=== PATIENT | female | born 1990 | race Caucasian/White ===

== ENCOUNTER 2024-09-04 12:27 | Emergency (ER) | payer OTHER, SELFPAY ==
[2024-09-04 12:33] VITALS: BP 133/76
[2024-09-04 12:51] LABS: % Basophils 0.3 % (0-2); % Immature Granulocytes 0.3 % (0-0.5); % Lymphocytes 14.6 % (20.5-51.1); % Monocytes 8.6 % (1.7-9.3); % Neutrophils 74.2 % (42.2-75.2); Absolute Eosinophils 0.2 10^3/uL (0-0.7); Absolute Lymphocytes 1.1 10^3/uL (1.2-3.4); Absolute Monocytes 0.7 10^3/uL (0.1-0.6); Absolute Neutrophils 5.7 10^3/uL (1.4-6.5); Hematocrit 37.8 % (37.0-47.0); Hemoglobin 12.5 g/dL (12.0-16.0); Mean Corp Hgb Conc. 33.1 g/dL (33.0-37.0); Mean Corpuscular Volume 90.9 fL (81.0-99.0); Nucleated Red Blood Cells % 0 %; Platelet Count 219 10^3/uL (130-400); Red Blood Cell Count 4.16 10^6/uL (4.20-5.40); Red Cell Dist. Width 13.3 % (11.5-14.5); White Blood Cell Count 7.7 10^3/uL (4.8-10.8)
[2024-09-04 13:06] LABS: ALT (SGPT) 13 U/L (0-35); AST (SGOT) 21 U/L (14-36); Albumin 3.9 g/dl (3.5-5.0); Alkaline Phosphatase 48 U/L (38-126); Blood Urea Nitrogen 7 mg/dl (7-17); Calcium 9.4 mg/dl (8.4-10.2); Carbon Dioxide 26 mmol/L (22-30); Chloride 104 mmol/L (98-107); Glucose 94 mg/dl (70-99); Potassium 3.7 mmol/L (3.5-5.1); Sodium 136 mmol/L (135-145); Total Bilirubin 0.3 mg/dl (0.2-1.3); Total Protein 6.7 g/dl (6.3-8.2); eGFR > 60.00
[2024-09-04 14:30] VITALS: BP 119/76
--- NOTE | 2024-09-04 14:35 | CON.NEURO ---
Consultation
Order
Date of Consultation: 09/04/24
Requesting Provider: Cain Perez MD
Reason for Consult: Probable new onset seizure
Neurology Consultation Note.
HPI: This is a 34-year-old 14-week woman who presented to [facility] on 09/04/2024 with a spell. According to the patient she developed an episode that occurred during a flight the previous night while the plane was
descending when she experienced a sharp pain in the right supraorbital region, described as a 'zing.' The patient felt overheated and attempted to alert her before losing consciousness. The patient's reports that prior to the
episode, she appeared pale and sweaty, complaining of pressure above her right eye. Ms. Horner reportedly slumped over and and was shaking for about 30 seconds with her eyes closed and head down. Upon regaining consciousness, the patient was
initially confused and disoriented.
No reports of fever, recent head trauma, history of encephalitis, seizures.
The patient reports a family history of seizures, with her maternal aunt experiencing seizures during puberty and her paternal grandmother having similar episodes that resolved by age 14.
ER VS: 133/76, 97, afebrile
EKG: Pending
Labs: Normal glucose WBCs, sodium, calcium
PMH: none
PSH: bilateral augmentation mammoplasty, rhinoplasty, , Staples teeth extraction
SH: , [id number] mom, previously worked in [employer]
FH: Maternal aunt�seizure
All:NKDA
ROS: Constitutional: Negative. Negative for chills, fever and unexpected weight change.
HENT: Negative for ear pain, hearing loss, tinnitus and trouble swallowing.
Eyes: Negative. Negative for photophobia, pain and visual disturbance.
Respiratory: Negative for cough, choking and shortness of breath.
Cardiovascular: Negative for chest pain, palpitations and leg swelling.
Gastrointestinal: Negative for abdominal pain and vomiting.
Endocrine: Negative. Negative for cold intolerance.
Genitourinary: Negative for dysuria, flank pain and urgency.
Musculoskeletal: Negative for back pain, gait problem, neck pain and neck stiffness.
Skin: Negative for rash.
Allergic/Immunologic: Negative. Negative for immunocompromised state.
Neurological: Positive for spells, transient headache
Psychiatric/Behavioral: Negative for behavioral problems, confusion and hallucinations.
General: Well developed. In no acute distress.
Cardio: Regular rate and rhythm without murmur. Extremities are without cyanosis or edema.
Neuro:
Mental Status: Alert, oriented to person, place, and date. Normal attention and recall. Good fund of knowledge. Follows complex requests across the midline. Comprehension, naming, and repetition intact.
Cranial Nerves: Pupils are equally round and reactive to light. EOMs full. Visual johnson full to confrontation. No ptosis. No nystagmus. V1-V3 intact to light touch and pinprick bilaterally, symmetric. Face symmetric. Normal hearing AU. The
palate elevated well. SCMs and traps 5/5. Tongue midline. No dysarthria.
Motor: Normal bulk and tone. No pronator or arm drift. Strength 5/5 throughout. No clonus.
Reflexes: 2+ throughout the upper extremities and knees. Plantar responses flexor bilaterally.
Sensory: Normal pinprick, vibration and JPS.
Coordination: No dysmetria or tremor.
Gait: deferred
Assessment and Plan:
I. Airplane headache
II. Syncope versus seizure
III. Family history of epilepsy
-Continue telemetry monitoring
-Seizure precautions
-Please obtain magnesium level, TFTs, urinalysis
-EKG
-Follow-up brain MRI
-Routine EEG
I personally reviewed all radiology and labs along with past medical records pertinent to current medical problems. Total time spent in patient care is 56 minutes.
Thank you for allowing us to participate in the care of this patient. We will continue to follow. Please do not hesitate to contact us with any questions or concerns.
Subjective/Objective
Subjective Data
Date of Service: September 04, 2024
Objective Data
Vital Signs
Temp Pulse Resp BP Pulse Ox
36.6 C 97 16 133/76 100
09/04/24 12:33 09/04/24 12:33 09/04/24 12:33 09/04/24 12:33 09/04/24 12:33
Lab Results
09/04/24 12:40
09/04/24 12:40
Sodium 136 mmol/L (135-145) 09/04/24 12:40
Potassium 3.7 mmol/L (3.5-5.1) 09/04/24 12:40
BUN 7 mg/dl (7-17) 09/04/24 12:40
Glucose 94 mg/dl (70-99) 09/04/24 12:40
Calcium 9.4 mg/dl (8.4-10.2) 09/04/24 12:40
Patient Allergies
No Known Allergies Allergy (Verified 09/04/24 12:37)
Vital Signs and Labs
-
Vital Signs and Labs:
Vital Signs
Temp Pulse Resp BP Pulse Ox
36.6 C 86 18 123/75 100
09/04/24 12:33 09/04/24 15:15 09/04/24 15:15 09/04/24 15:15 09/04/24 15:15
Lab Results
09/04/24 12:40
09/04/24 12:40
Sodium 136 mmol/L (135-145) 09/04/24 12:40
Potassium 3.7 mmol/L (3.5-5.1) 09/04/24 12:40
BUN 7 mg/dl (7-17) 09/04/24 12:40
Glucose 94 mg/dl (70-99) 09/04/24 12:40
Calcium 9.4 mg/dl (8.4-10.2) 09/04/24 12:40
Ur Buprenorphine Negative (Negative) 09/04/24 16:01
--- NOTE | 2024-09-04 14:51 | ED.GENMED ---
History of Present Illness
General
Chief Complaint: Seizure
Source: patient
Exam Limitations: none
Time Seen by Provider: 09/04/24 14:06
Nursing documentation reviewed up to this point in time: agreed with
History of Present Illness
History of Present Illness:
Patient presents to ED for evaluation secondary to possible seizure-like activity noted while on an airplane last night, witnessed by her , who was sitting next to her. Patient states that she suddenly experienced painful sensation along the
lateral aspect of bridge of her nose, traveling up to her forehead. Patient since something was wrong and decided to get attention of her who was asleep at the time. That is her last recollection until she woke. She was told by her
that what she was trying to communicate to her did not make much sense, and then she lost consciousness and slumped forward, while in sitting position, with 'shaking' behavior, lasting approximately 1 minute. Patient denies tongue
biting. Denies urinary or bowel incontinence. The patient immediately recognized where she was and denies confusion. Symptoms preceding seizure-like activity, gradually dissipated. Denies previous history of similar symptoms. Patient however,
is 14 weeks with her second . Patient was evaluated at [employer] [facility] office this morning and was told that everything is okay. Patient has had a viral illness couple weeks ago, which now has resolved, consisting of nasal congestion.
There is family history of seizure disorder. Patient currently only takes vitamins.
Review of Systems
Review of Systems
Allergies reviewed?: Yes
All Other Systems: ROS reviewed and negative except as documented in HPI and ROS
Constitutional: Reports no symptoms
EENT: Reports no symptoms
Respiratory: Reports no symptoms
Cardiac: Reports no symptoms
ABD/GI: Reports no symptoms
: Reports no symptoms
Musculoskeletal: Reports no symptoms
Skin: Reports no symptoms
Neurological: Reports other (seizure)
Phy Exam
Physical Exam
Physical Exam:
Physical Exam
General: no apparent distress, not acutely ill. afebrile.
Head: nc/at. eomi
Neck: supple. no meningeal signs. normal range of motion. no carotid bruit
Heart: s1/s2 regular rate and rhythm, no murmur.
Lungs: no acute respiratory distress. clear bilaterally
Abdomen: normal bowel sounds. not tender.
Neuro: alert and oriented x 3. no focal neurological deficits. normal speech
Skin: no rash
Psychiatric: well kept. interactive and cooperative
Extremities: no edema. no calf tenderness.
Course
Orders/Labs/Results
Orders:
Orders
09/04/24 12:40
Complete Blood Count/With Diff Urgent
Comprehensive Metabolic Panel Urgent
Creatine Phosphokinase Urgent
Comment: ADD ON
Magnesium Urgent
Comment: ADD ON
TSH Urgent
Comment: ADD ON
09/04/24 14:37
Add On- LAB Routine
Comments:: Please add to today's labs or draw as routine
Tests Added?: CK, Mg
MRI Brain [MR Brain Without Contrast] Routine
Comment:
Reason For Exam: seizure
OK for patient to be off Cardiac Monitoring for MRI: No
Recent pill cam endoscopy?: No
09/04/24 14:39
Add On- LAB Routine
Comments:: Please add to today's labs or draw as routine
Tests Added?: TSH
09/04/24 14:49
NEUROLOGY CONSULT Urgent
Consulting Provider: Nichelle Jolley
Was physician already notified: Yes
Reason for consult: Possible seizure
09/04/24 16:01
Urinalysis Routine
Date Specimen was Collected: 09/04/24
Time Specimen was Collected: 16:00
Urine Drug Abuse Screen Routine
Date Specimen was Collected: 09/04/24
Time Specimen was Collected: 16:00
Urine Microscopic Routine
Date Specimen was Collected: 09/04/24
Time Specimen was Collected: 16:00
09/04/24 17:59
Electrocardiogram (*1) Urgent
Reason for Study: Other
Other Reason for Exam: seizure
EKG- Treatment ONCE
Abnormal Lab Results
09/04/24 09/04/24
12:40 16:01
RBC 4.16 L 10^6/uL
(4.20-5.40)
Absolute Lymphs (auto) 1.1 L 10^3/uL
(1.2-3.4)
Absolute Monos (auto) 0.7 H 10^3/uL
(0.1-0.6)
Lymphocytes % 14.6 L %
(20.5-51.1)
Creatinine 0.5 L mg/dL
(0.6-1.0)
Urine Ketones 1+ A
(Negative)
Ur Leukocyte Esterase 2+ A
(Negative)
09/04/24 12:40
09/04/24 12:40
Vital Signs
Initial and Last Documented VS:
Initial Vital Signs
Temp Pulse Resp BP Pulse Ox
97.8 F 97 16 133/76 100
09/04/24 12:33 09/04/24 12:33 09/04/24 12:33 09/04/24 12:33 09/04/24 12:33
Last Documented Vital Signs
Temp Pulse Resp BP Pulse Ox
97.8 F 81 18 125/77 99
09/04/24 12:33 09/04/24 18:55 09/04/24 18:55 09/04/24 18:55 09/04/24 18:55
MDM/Problems Addressed
MDM/Problems Addressed:
Pt evaluated in ED by (neurology) - ordered MRI brain along with additional blood work. Recommends discharge home with following recommendation : outpatient EEG/neurology f/u, dmv license suspension, no antiseizure meds.
Discussed with patient, family, spouse (via phone) - agrees with treatment plan. Patient given copy of blood work, as well as MRI brain on a disk prior to discharge.
DMV form completed and faxed over
*EKG
Interpreted by ED Provider?: Yes
EKG Intrepretation Date: 09/04/24
Heart Rate: 78
Rate: normal
Rhythm: sinus
Marion: normal axis
Interval: normal interval
*Critical Care Note
Total Time (30-74mins, 75-104mins- exclusive of procedures): Not Applicable
ED Attending Note
-
Portions of this chart may have been created with voice recognition software.� Occasional wrong word or��sound alike� substitutions may have occurred due to the inherent limitations of voice recognition software.
Discharge Plan
Departure
Patient Disposition: Home (Routine Discharge)
Date of Disposition: 09/04/24
Time of Disposition: 18:45
Patient with high blood pressure during this ER visit?: Yes
Discharge Problem:
Syncope
Instructions: Seizures, Adult (DC)
Referrals:
Gab Mistry MD [Active] -
NONE,* [Family Provider] -
Activity Restrictions/Additional Instructions:
As discussed, you must follow-up with a neurologist outpatient for further evaluation and treatment, including EEG. Your driving privileges will be suspended, starting today. However if you remain seizure-free, your neurologist may be able to
refer license.
Interventions
Interventions:
*Risk Screen - Suicide Last Done: 09/04/24 12:33
*General Assessment Last Done: 09/04/24 12:33
*Neglect/Abuse Screening Last Done: 09/04/24 14:30
*ED COVID-19 Vaccine History Last Done: 09/04/24 12:33
*Nursing Disposition Last Done: 09/04/24 18:56
ED- Cardiac Assessment Last Done: 09/04/24 14:30
ED- Neurological Assessment Last Done: 09/04/24 14:30
ED- Pulmonary Assessment Last Done: 09/04/24 14:30
Discharge Date and Time
Discharge Date/Time: 09/04/24 19:16
Print Language: MAURITANIAN
[2024-09-04 15:13] VITALS: BMI 27.2
[2024-09-04 15:15] VITALS: BP 123/75
[2024-09-04 16:43] LABS: Amphetamines Negative (Negative); Barbiturates Negative (Negative); Benzodiazepines Negative (Negative); Buprenorphine Negative (Negative); Cocaine Negative (Negative); Marijuana Negative (Negative); Methadone Negative (Negative); Methamphetamines Negative (Negative); Opiates Negative (Negative); Phencyclidine Negative (Negative); Tricyclic Antidepressants Negative (Negative)
[2024-09-04 17:11] LABS: Urine Albumin Negative (Neg - Trace); Urine Bilirubin Negative (Negative); Urine Character Clear (Clear); Urine Color Yellow; Urine Glucose Negative (Negative); Urine Ketone 1+ (Negative); Urine Leukocyte 2+ (Negative); Urine Nitrite Negative (Negative); Urine Occult Blood Negative (Negative); Urine Urobilinogen Negative (Neg - 1+)
[2024-09-04 17:32] LABS: Urine Red Blood Cell 0-2 /HPF (0-2)
[2024-09-04 17:35] VITALS: BP 113/72
[2024-09-04 18:01] LABS: Creatine Phosphokinase 78 U/L (30-135); Magnesium 1.8 mg/dl (1.6-2.3)
[2024-09-04 18:33] LABS: TSH 1.17 uIU/ml (0.47-4.68)
[2024-09-04 18:55] VITALS: BP 125/77
== END 2024-09-04 19:16 | disposition home or self-care (01) ==
LOC: EMR 12:27
PROVIDERS: Emergency Medicine; CONSULT PHYSICIAN Psychiatry & Neurology Neurology; EMERGENCY PHYSICIAN Emergency Medicine
DX: O99.891 Other specified diseases and conditions complicating pregnancy (principal); R55 Syncope and collapse; R51.9 Headache, unspecified; Z3A.14 14 weeks gestation of pregnancy; Z82.0 Family history of epilepsy and other diseases of the nervous system
CPT/HCPCS: 99285; 70551; 80053; 80306; 81003; 81015; 82550; 83735; 84443; 85025; 93005